=== PATIENT | male | born 2000 | race African-American/Black ===

== ENCOUNTER 2021-04-26 20:21 | Emergency (ER) | payer OTHER ==
[~2021-04-26] VITALS: Ht 172.7 cm; Wt 61.2 kg
[2021-04-26 22:09] VITALS: BP 153/91
== END 2021-04-26 22:52 | disposition home or self-care (01) ==
LOC: ER 20:24
DX: S43.492A Other sprain of left shoulder joint, initial encounter (principal); S29.012A Strain of muscle and tendon of back wall of thorax, initial encounter; M62.838 Other muscle spasm; V49.49XA Driver injured in collision with other motor vehicles in traffic accident, initial encounter; Y93.89 Activity, other specified; Y92.488 Other paved roadways as the place of occurrence of the external cause; Y99.8 Other external cause status
CPT/HCPCS: 73030